=== PATIENT | female | born 1940 | race Caucasian/White ===

== ENCOUNTER → 2016-12-19 | Outpatient (CLI) | payer OTHER | LOC: FLAB 14:42 | PROVIDERS: ATTEND Internal Medicine Cardiovascular Disease | DX: R05 Cough (principal) ==

== ENCOUNTER → 2017-01-07 | Outpatient (CLI) | payer OTHER | LOC: BHFA 09:30 | PROVIDERS: ATTEND Internal Medicine Cardiovascular Disease | DX: I50.9 Heart failure, unspecified (principal); I44.7 Left bundle-branch block, unspecified; R05 Cough; E87.1 Hypo-osmolality and hyponatremia ==

== ENCOUNTER 2017-01-18 07:34 | Inpatient (IN) | payer OTHER ==
--- NOTE | 2017-01-18 07:53 | EDPHY ---
H & P Time Seen by Provider: 01/18/17 07:38 HPI/ROS: CHIEF COMPLAINT: Low back pain, pelvic pain following mechanical fall HISTORY OF PRESENT ILLNESS: The patient presents to the ED with complaints of acute low back pain and gluteal pain following a mechanical fall. The patient' s believes that she may have taken an extra dose of Ambien last night. She was walking this morning slipped and fell on stairs. The patient landed on her back. She did strike her head but did not lose consciousness. The patient denies any acute headache. In the ED today she complains of moderate to severe pain in her lower lumbar spine and gluteal area. The patient denies any associated acute numbness or weakness. The patient denies headache, neck pain, chest pain, difficulty breathing, extremity pain or additional complaints. REVIEW OF SYSTEMS: A comprehensive 10 point review of systems is otherwise negative aside from elements mentioned in the history of present illness. Source: Patient, Family - Medical/Surgical History Hx Asthma: No Hx Chronic Respiratory Disease: No Hx Diabetes: Yes Hx Cardiac Disease: Yes Hx Renal Disease: No Hx Cirrhosis: No Hx Alcoholism: No Hx HIV/AIDS: No Hx Splenectomy or Spleen Trauma: No Other PMH: BREAST CANCER. CHF. HYSTERECTOmy. Mastectomy w reconstruction. HTN. DM - Social History Smoking Status: Never smoked - Physical Exam Exam: General Appearance: Elderly female, no acute distress Head: Atraumatic Eyes: Pupils equal, round, reactive ENT, Mouth: No hemotympanum, no oral trauma Neck: Nontender, trachea midline Respiratory: No chest wall tender, subcutaneous air, lungs clear bilaterally Cardiovascular: Regular rate and rhythm Abdomen: Abdomen is soft and nontender, pelvis stable Skin: Multiple superficial abrasions and skin tears Back: Tenderness to palpation in the lower lumbar spine, midline. Extremities: Nontender, full range of motion Neurological: A&Ox3, normal motor function, normal sensory exam Constitutional: Initial Vital Signs Temperature (C) 36.7 C 01/18/17 07:35 Heart Rate 76 01/18/17 07:35 Respiratory Rate 13 01/18/17 07:35 Blood Pressure 145/76 H 01/18/17 07:35 O2 Sat (%) 98 01/18/17 07:35 O2 Delivery Mode Room Air O2 (L/minute) 2 Allergies/Adverse Reactions: adhesive Allergy (Verified 01/18/17 09:38) Rash codeine Allergy (Verified 01/18/17 09:37) headache metronidazole [From Flagyl] Allergy (Verified 01/18/17 09:37) headache Home Medications: Medication Instructions Recorded Allopurinol [Allopurinol 300 MG 300 mg PO DAILY 12/07/13 (RX)] Aspirin EC [Aspirin EC 81 mg (*)] 81 mg PO DAILY 12/07/13 Atorvastatin Calcium [Lipitor 40 40 mg PO HS 12/07/13 mg (*)] Carvedilol [Coreg (*)] 25 mg PO BID 12/07/13 FOSINOPRIL SODIUM [MONOPRIL] 20 mg PO BID 12/07/13 Levothyroxine [Synthroid 88 mcg 88 mcg PO DAILY06 12/07/13 (*)] Potassium Cl [Klor-Con] 10 meq PO DAILY 12/07/13 metFORMIN HCL [Glucophage 1000 mg] 1,000 mg PO BIDMEAL 12/07/13 Herbals/Supplements -Info Only 1 ea PO DAILY 01/18/17 Multivitamins [Multivitamin (*)] 1 each PO DAILY 01/18/17 Spironolactone [Aldactone 25 MG 25 mg PO DAILY 01/18/17 (*)] Zolpidem Tartrate [Ambien 10 mg] 10 mg PO HS PRN 01/18/17 Medical Decision Making - Diagnostics Imaging Results: Imaging Impressions Lumbar Spine X-Ray 01/18/17 07:38 Impression: 1. Mild to moderate anterior wedge compression fracture superior endplate of L1 more prominent toward the right side that has developed since December,. This could be acute. 2. Stable mild anterior subluxation of L4 on L5 that appears to be secondary to facet hypertrophy. 3. Mild increase in levoscoliosis upper lumbar spine. Pelvis X-Ray 01/18/17 07:39 Impression: 1. No acute osseous abnormality seen about the pelvis. ED Course/Re-evaluation: The patient presents to the ED with low back pain after mechanical fall. The patient has an acute compression fracture at L1. She is neurologically intact. The patient did have an IV established. She received 1 L of normal saline. The patient did have an episode of syncope secondary to an episode of severe pain. EKG demonstrates no evidence of an obvious arrhythmia. She does have underlying left bundle branch block. The patient was evaluated several times by myself in the ED. She continues to have fairly significant pain despite IV narcotics and the application of a Lidoderm patch. The patient will require admission to the hospital for symptomatic management. Consultation is made with the hospitalist service. The patient will be admitted by Dr. Flores this evening. The patient is noted to be hyponatremic. In reviewing her laboratory studies this appears to be chronic. Her sodium is a baseline from a measurement 1 month ago. The patient was noted to have hyperkalemia in the setting of hemolysis. A repeat I-STAT was ordered at 11:50 a.m. Differential Diagnosis: Differential diagnosis considered includes lumbar compression fracture, spinal cord injury, pelvic fracture, arrhythmia, critical anemia - Data Points Laboratory Results: Laboratory Results 01/18/17 08:45 01/18/17 08:45 01/18/17 01/18/17 01/18/17 08:45 08:45 07:35 WBC 12.41 10^3/uL H 10^3/uL (3.80-9.50) RBC 3.15 10^6/uL L 10^6/uL (4.18-5.33) Hgb 10.1 g/dL L g/dL (12.6-16.3) Hct 29.5 % L % (38.0-47.0) MCV 93.7 fL fL (81.5-99.8) MCH 32.1 pg pg (27.9-34.1) MCHC 34.2 g/dL g/dL (32.4-36.7) RDW 12.5 % % (11.5-15.2) Plt Count 175 10^3/uL 10^3/uL (150-400) MPV 9.3 fL fL (8.7-11.7) Neut % (Auto) 82.2 % H % (39.3-74.2) Lymph % (Auto) 10.5 % L % (15.0-45.0) [place] % (Auto) 5.5 % % (4.5-13.0) Eos % (Auto) 0.8 % % (0.6-7.6) Baso % (Auto) 0.4 % % (0.3-1.7) Nucleat RBC Rel Count 0.0 % % (0.0-0.2) Absolute Neuts (auto) 10.20 10^3/uL H 10^3/uL (1.70-6.50) Absolute Lymphs (auto) 1.30 10^3/uL 10^3/uL (1.00-3.00) Absolute Monos (auto) 0.68 10^3/uL 10^3/uL (0.30-0.80) Absolute Eos (auto) 0.10 10^3/uL 10^3/uL (0.03-0.40) Absolute Basos (auto) 0.05 10^3/uL 10^3/uL (0.02-0.10) Absolute Nucleated RBC 0.00 10^3/uL 10^3/uL (0-0.01) Immature Gran % 0.6 % % (0.0-1.1) Immature Gran # 0.08 10^3/uL 10^3/uL (0.00-0.10) Sodium 124 mEq/L L mEq/L (134-144) Potassium 6.2 mEq/L H mEq/L (3.5-5.2) Chloride 96 mEq/L L mEq/L (97-110) Carbon Dioxide 20 mEq/l L mEq/l (22-31) Anion Gap 8 mEq/L mEq/L (8-16) BUN 19 mg/dL mg/dL (7-23) Creatinine 0.7 mg/dL mg/dL (0.6-1.0) Estimated GFR > 60 Glucose 125 mg/dL H mg/dL (70-100) Calcium 8.4 mg/dL L mg/dL (8.5-10.4) Specimen Hemolysis 160 Urine RBC 1-3 /hpf /hpf (0-3) Urine WBC 1-3 /hpf /hpf (0-3) Ur Epithelial Cells TRACE /lpf /lpf (NONE-1+) Hyaline Casts 1-5 /lpf /lpf (0-1) Medications Given: Discontinued Medications Sodium Chloride (Ns) 1,000 mls @ 0 mls/hr IV EDNOW ONE; Wide Open PRN Reason: Protocol Stop: 01/18/17 08:16 Last Admin: 01/18/17 08:20 Dose: 1,000 mls Lidocaine (Lidoderm 5%) 1 ea TD EDNOW ONE Stop: 01/18/17 08:13 Last Admin: 01/18/17 08:20 Dose: 1 ea Morphine Sulfate (Morphine) 2 mg IVP EDNOW ONE Stop: 01/18/17 10:56 Last Admin: 01/18/17 11:09 Dose: 2 mg Ondansetron HCl (Zofran) 4 mg IVP EDNOW ONE Stop: 01/18/17 08:50 Last Admin: 01/18/17 08:56 Dose: Not Given Departure - Departure Disposition: [facility] Inpatient Acute Clinical Impression: Lumbar compression fracture, Vasovagal syncope, Chronic hyponatremia Condition: Fair
[2017-01-18] MEDS ORDERED: ONDANSETRON 4 MG/2 ML VIAL ONE (08:07)
[2017-01-18] MEDS ORDERED: LIDOCAINE 5% 1 EA PATCH TD ONE (08:12)
[2017-01-18] MEDS ORDERED: NS 1,000 ML IV ONE (08:15)
[2017-01-18] MEDS ORDERED: ONDANSETRON 4 MG/2 ML VIAL IVP ONE (08:49)
[2017-01-18] MEDS: PATCH REMOVAL 1 EA PATCH TD SCH (08:57)
[2017-01-18 09:06] LABS: % IMMATURE GRANULYOCYTES 0.6 % (0.0-1.1); ABSOLUTE IMMATURE GRANULOCYTES 0.08 10^3/uL (0.00-0.10); ADD DIFF? NO; ADD MORPH? NO; ADD SCAN? NO; ATYPICAL LYMPHOCYTE FLAG 10 (0-99); FRAGMENT RBC FLAG 0 (0-99); HEMATOCRIT 29.5 % (38.0-47.0); HEMOGLOBIN 10.1 g/dL (12.6-16.3); LEFT SHIFT FLG 0 (0-99); LIPEMIA HEMOLYSIS FLAG 90 (0-99); MEAN CELL HEMOGLOBIN 32.1 pg (27.9-34.1); MEAN CELL HEMOGLOBIN CONCENTR. 34.2 g/dL (32.4-36.7); MEAN CELL VOLUME 93.7 fL (81.5-99.8); MEAN PLATELET VOLUME 9.3 fL (8.7-11.7); PLATELET CLUMPS FLAG 10 (0-99); PLATELET COUNT 175 10^3/uL (150-400); RED BLOOD CELL COUNT 3.15 10^6/uL (4.18-5.33); RED CELL DISTRIBUTION WIDTH 12.5 % (11.5-15.2)
[2017-01-18 09:29] LABS: ANION GAP 8 mEq/L (8-16); CALCIUM 8.4 mg/dL (8.5-10.4); CARBON DIOXIDE 20 mEq/l (22-31); CHLORIDE 96 mEq/L (97-110); CREATININE 0.7 mg/dL (0.6-1.0); GLOMERULAR FILTRATION RATE > 60; GLUCOSE 125 mg/dL (70-100); POTASSIUM 6.2 mEq/L (3.5-5.2); SODIUM 124 mEq/L (134-144); SPECIMEN HEMOLYSIS 160
--- NOTE | 2017-01-18 12:55 | CPEKG ---
Heart Rate: 67 RR Interval: 896 P-R Interval: 260 QRSD Interval: 150 QT Interval: 424 QTC Interval: 448 P [place]: 72 QRS [place]: -55 T Wave [place]: 104 EKG Severity - ABNORMAL ECG - EKG Impression: SINUS RHYTHM EKG Impression: VENTRICULAR PREMATURE COMPLEX EKG Impression: FIRST DEGREE AV BLOCK EKG Impression: PROBABLE LEFT ATRIAL ABNORMALITY EKG Impression: LEFT BUNDLE BRANCH BLOCK Electronically Signed By: Sinan Aviles 24-Jan-2017 12:52:42
[2017-01-18] MEDS: traMADol 50 MG TAB PO PRN ×2 (15:37→22:10)
--- NOTE | 2017-01-18 16:00 | GHP ---
[f rep st] HISTORY AND PHYSICAL DATE OF ADMISSION: 01/18/2017 CHIEF COMPLAINT: Low back pain. HISTORY OF PRESENT ILLNESS: This is a 76-year-old female with history of AFib, syncope, anorexia, a nd insomnia, on Ambien at night, who woke this morning at 6:30 on the floor in excruciating low back pain. The pain was described as 10/10 in her low back, right side greater than left. She could no t move. She was unable to recall how she landed on the floor. She did take an Ambien last night. She denied any significant alcohol intake last night. She did have episode of syncope 3 years ago, at which time, she was worked up by Cardiology without a source. She has passed out multiple times in the past, which is attributed to nausea and vomiting which is most likely due to her vagal tone. At the time of my exam, she continues to have severe low back pain. She denies any bowel or bladder incontinence. She denies any chest pain or shortness of breath. She has not been eating very much , since she has been stressed. Once again, she has a history of anorexia. Her has not been in good health. She has lost over 40 pounds over the past few months. PAST MEDICAL HISTORY: 1. Syncope. 2. Hypertension. 3. Anorexia. 4. Gout. 5. Heart failure. 6. Hypothyroidism. 7. Diabetes mellitus. PAST SURGICAL HISTORY: 1. Hysterectomy. 2. Mastectomy and reconstruction. HOME MEDICATIONS: Reviewed. Refer to [facility] for details. ALLERGIES: Codeine and metronidazole. SOCIAL HISTORY: She drinks a glass of wine every now and then but does not drink to get drunk. She denies any tobacco or illicit drug use. FAMILY HISTORY: Reviewed and noncontributory other than family history of heart failure. REVIEW OF SYSTEMS: Comprehensive 10-point review of systems was done and is negative except for as mentioned in the HPI. PHYSICAL EXAM: VITAL SIGNS: Blood pressure 123/57, pulse 68, respiratory rate 16, O2 sat 98% on 2 L, temperature afebrile. GENERAL: No acute distress. HEAD: Normocephalic, atraumatic. EYES: PE RRLA. Sclerae anicteric. MOUTH: Moist mucous membranes. NECK: Supple. No lymphadenopathy. CAR DIOVASCULAR: S1, S2. No JVD. No lower extremity edema. PULMONARY: Lungs are clear. No wheezes, rales, or rhonchi. ABDOMEN: Soft, nontender, nondistended. No guarding or rebound tenderness. N ormoactive bowel sounds. EXTREMITIES: No clubbing or cyanosis. NEURO: Cranial nerves 2-12 grossl y intact. No focal, motor or sensory deficits. There is no saddle anesthesia. Muscle strength: 5 /5 bilateral lower extremity flexion, extension at the hip and at the foot. DTRs are symmetric. SK IN: Clear. No rashes. DIAGNOSTICS: WBC is 12.4, hemoglobin 10.1, hematocrit 29.5, platelets 175. Sodium 126, potassium 4 .7, chloride 96, CO2 of 20, BUN 19, creatinine 0.7, glucose 125, calcium 8.4. UA unremarkable. Lum bar spine x-ray, which I visualized and personally interpreted, showed an L1 compression fracture. EKG, which I visualized and personally interpreted, showed sinus rhythm, rate 67 beats per minute wi th first-degree AV block and probable left atrial abnormality, and left bundle branch block. I reviewed prior EKGs in [facility], the last of which was in December of 2015, where she had a left bundl e branch block at that time as well. ASSESSMENT: This is a 76-year-old female who awoke while on the floor today with severe back pain, found to have: 1. Acute L1 compression fracture, possibly pathologic, in the setting of osteopenia or osteoporosis . 2. Possible syncopal episode versus parasomnia from Ambien versus cardiogenic syncope. 3. History of anorexia. 4. Hyponatremia appears to be euvolemic, which I suspect is from poor solute intake, given the fact that she is not eating much. 5. Normocytic anemia. PLAN: 1. Admit to [facility] with cardiac monitoring. 2. Cardiology consult, given her history of heart failure and syncope. 3. Discussed the case with Dr. Rylan Luo from Neurosurgery, who will have someone from his team see the patient to evaluate for kyphoplasty. 4. Obtain urine sodium and monitor chemistries. Patient is high risk for VTE and will be placed on Lovenox for DVT prophylaxis. /[id number]/MODL
[2017-01-18 17:02] LABS: INR 1.19 (0.83-1.16); PROTIME(PATIENT) 15.1 SEC (12.0-15.0)
[2017-01-18 17:03] LABS: APTT 31.4 SEC (23.0-38.0)
[2017-01-18 17:13] LABS: TROPONIN I 0.015 ng/mL (0-0.034)
[2017-01-18] MEDS: metFORMIN HCL 500 MG TAB PO SCH (18:28)
[2017-01-18] MEDS: ATORVASTATIN CALCIUM 40 MG TAB PO SCH (20:33)
[2017-01-18] MEDS: LISINOPRIL 20 MG TAB PO SCH (20:33)
[2017-01-18] MEDS: CARVEDILOL 25 MG TAB PO SCH (20:34)
--- NOTE | 2017-01-18 22:46 | GCON ---
[f rep st] CONSULTATION INPATIENT CONSULTATION DATE OF CONSULTATION: 01/18/2017 CHIEF COMPLAINT: Back pain, L1 endplate fracture. HISTORY OF PRESENT ILLNESS: Patient is a 76-year-old female, who presented to the emergency room today after she woke up on the floor this morning status post fall. Patient states that she woke up with excruciating low back pain, which was described as 10/10 with it being worse on the right side. She does take Ambien at 10 o'clock every night and has done so for approximately 1 year. She states she has had syncopal episodes in the past and is seen by Cardiology. Patient states that she has lost approximately 40 pounds in the last few months contributes some of the weight to an exercise program she is on and the other is unexplained, where she said she just had a loss of appetite. REVIEW OF SYSTEMS: A 10-point review of systems performed and negative other than what was mentioned in the HPI. PAST MEDICAL HISTORY: Significant for syncope, hypertension, anorexia, gout, heart failure, hypothyroid, and diabetes. PAST SURGICAL HISTORY: Includes a hysterectomy, mastectomy, and oophorectomies. FAMILY HISTORY: Mother from heart failure. Sister from ovarian cancer. SOCIAL HISTORY: Patient drinks occasional wine with dinner. She denies any smoking. Denies any drugs. ALLERGIES: Include codeine and Flagyl. MEDICATIONS: Ambien, Glucophage, Lipitor, Coreg, Zestril, lidocaine patch, Synthroid, allopurinol, aspirin enteric-coated, multivitamins, Aldactone. PHYSICAL EXAMINATION: VITAL SIGNS: Blood pressure is 123/57, heart rate is 68 , respiratory rate is 16, oxygenation is 98% on 2 L nasal cannula, temperature is 36.6 Celsius. HEENT: Head is normocephalic and atraumatic. Pupils are equal, round, and reactive to light. EOMI is intact. Full visual fernandez by confrontation. RESPIRATORY: Normal work of breathing. CARDIAC: Deferred. ABDOMEN: Soft, nontender. GENITOURINARY: Deferred. RECTAL: Deferred. NEUROLOGIC: Patient is awake, alert and oriented to name, place, location, date , time, and situation. Memory is intact to immediate past and current events. Speech: No aphasia or dysphonia. Cranial nerves 2-12 are grossly intact. Motor: The patient has 5/5 strength in all muscle groups in the bilateral lower and upper extremities to include the deltoids, biceps, triceps, brachioradialis, wrist flexion and extensors, home care manager, intrinsic fingers, iliopsoas , quadriceps, hamstrings, plantarflexion, dorsiflexion, EHL testing. Sensation is grossly intact to light touch throughout all dermatomal distributions in the bilateral lower extremities. Patient has a negative straight leg raise bilaterally. Unable to perform LYNDON test due to pain in the right lower back. Reflexes: Biceps, triceps, brachioradialis, knee jerk, and ankle jerk are 2+ out of 4. Toes are downgoing bilaterally. Amie sign is negative. Babinski is negative. No evidence of clonus. Patient is very tender to palpation lumbar spine. ASSESSMENT/PLAN: Patient is a 76-year-old female status post fall has suffered an acute L1 endplate fracture. She is neurologically intact and due to the patient's comorbidities, we recommend bracing as treatment of her fracture. This would be a Sophy brace. Risks, and benefits of vertebral augmentation were discussed with Dr Mccarty. Patient is considering her treatment options at this time and will let us know how she would like to proceed. If vertebral augmentation is chosen, we will defer to IR. Patient was seen by Dr Mccarty at the bedside as well. This patient was seen as an inpatient consult on January 18, 2017, at 1600. /[id number]/MODL MTDD
--- NOTE | 2017-01-18 23:01 | GCON ---
[f rep st] CONSULTATION CARDIOLOGY CONSULTATION PRIMARY CARE DOCTOR: Dr. Drew PRIMARY MULTIPLE WIRE SAWYER: Dr. Terence Paez CHIEF COMPLAINT: Possible syncope. HISTORY OF PRESENT ILLNESS: We were asked by Dr. Flores to visit with Torri. 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 Guevara mckeon has had extensive evaluation at the [facility]. She was last seen there in May 2016. Eject ion fraction was 45% at that time. She does have a left bundle branch block and has previously had Holter monitoring with a PVC burden of 3%. She sees Dr. Paez and has been clinically stable from a heart failure standpoint. She was seen in our office most recently on January 07. At that time, she had been complaining of a chr onic dry cough and her KASIA inhibitor was changed to losartan. Her digoxin was stopped and her Aldac tone was decreased. The patient is admitted through the ER today after sustaining a fall down the stairs at home complic ated by lumbar compression fracture. She reports that last night she went out to dinner with her fa uyen. She had 1 glass of wine which is her usual custom. She ate a normal meal. She came home and took her usual Ambien dose around 10:00 p.m. She woke up, probably around 6:30 in the morning, and she thinks she was on the floor outside of her bedroom. She realized that she needed help, so she got up and started ringing a renteria that she has in her bedroom. The next thing she knew, she was fal ling down the stairs and was found by her at the bottom of the stairs. She is brought to [facility] ER for further evaluation. She denies any prodrome of chest pain, dyspnea, or palpitations. She currently is free of cardiovas cular symptoms and complains only of back pain. She also states that about 3 months ago, but it may have been longer ago than that according to our chart, she had an episode where she was working at her computer and then found herself on the floor looking up at her desk. The etiology of this is no t clear, but she was told that she may have been overheated as it is quite hot in the room she was w orking in. REVIEW OF SYSTEMS: A full 10-point review of systems was performed which was negative except that fide neville is outlined in the History of Present Illness. She has lost some weight recently due to anorex ia and stress of caring for her who has been ill. PAST MEDICAL HISTORY: 1. 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 2. Hypothyroidism. 3. Diabetes. 4. Hypertension. 5. Gout. 6. Chronic hyponatremia. 7. Left bundle branch block. 8. Nocturnal hypoxia. 9. Breast cancer. OUTPATIENT MEDICATIONS: Allopurinol 300 mg daily, Coreg 25 mg twice daily, Synthroid 88 mcg daily, losartan 50 mg daily, metformin 1,000 mg twice daily, Robaxin 500 mg 1/2 to 1 tablet at bedtime p.r. n., spironolactone 12.5 mg daily, zolpidem 10 mg nightly, aspirin 81 mg daily, calcium with vitamin D, and Lipitor 40 mg daily. SOCIAL HISTORY: The patient is . She does drink alcohol in moderation. She does not smoke cigarettes. FAMILY HISTORY: Notable for cardiomyopathy and related to this. Her daughter has a history o f heart failure as well. PHYSICAL EXAMINATION: VITAL SIGNS: Blood pressure 123/57, heart rate 68, oxygen saturation 97% on 2 L. She is afebrile. GENERAL: Well-appearing, but somewhat frail older female in no acute distre ss. HEENT: Sclerae clear and free of jaundice. Mucous membranes are moist. Normocephalic, atraum atic. Dentition is normal. CARDIOVASCULAR: JVP is less than 10. Carotids equal and 2+ bilaterall y, without bruit. Regular rate and rhythm with an early peaking systolic ejection murmur at the bas e and II/ holosystolic murmur at the left sternal border. No rub or gallop. LUNGS: Clear throug hout without wheezes, rhonchi, or rales. ABDOMEN: Soft, nontender, nondistended without bruits, ma sses, or hepatosplenomegaly. EXTREMITIES: Warm and well-perfused without cyanosis, clubbing, or ed afsaneh. NEURO: Alert and oriented x3 without gross focal neurological deficits. Appropriate mood and affect. LABORATORY DATA: White count 12.4, hematocrit 29.5, which is lower than recent baseline, left shift . Sodium 124 which is slightly though lower than baseline. Potassium 6.2, but on recheck 4.7, chlo ride 96, bicarb 20, BUN 19, creatinine 0.7, glucose 125. Urinalysis: 1-3 red cells, 1-3 white cell s. EKG reviewed by me. Normal sinus rhythm. Left bundle branch block. PVC. Lumbar spine x-ray: Anterior wedge compression fracture of L1. Pelvis x-ray: No acute osseous abn ormality. ASSESSMENT AND PLAN: A 76-year-old female with nonischemic cardiomyopathy, left bundle branch block , diabetes. She is admitted status post fall down the stairs complicated by lumbar compression frac ture. The etiology of her fall is not completely clear. It is possible that in the setting of weig ht loss and still taking her normal dose of Ambien, it was too much Ambien and she was very confused . She denies any cardiovascular symptoms over the past few days. However, given her history of car diomyopathy and left bundle branch block, it is possible that she had an arrhythmic event, either ta chycardia or bradycardia. 1. Fall, possible syncope: Agree with telemetry monitoring. Check orthostatics. Check echocardio gram. I have ordered a troponin. Would consider ambulatory monitoring with a LINQ recorder, ulises albright given her somewhat unexplained episode of being found on the floor 3 months ago. 2. History of cardiomyopathy: Her ejection fraction last May at the [facility] was 45% by re port. Repeat echocardiogram now. Continue cardiomyopathy medications. She does not appear to be v olume depleted, and perhaps should come off her spironolactone if we think this may be contributing to some dehydration. 3. Chronic hyponatremia: Currently slightly worse than baseline per Internal Medicine. 4. Left bundle branch block: Continue telemetry. Can consider LINQ recording. 5. Diabetes: Followed by Dr. Drew. Thank you for allowing us to participate in Torri's care. I will follow with you. /[id number]/MODL
[2017-01-19 05:19] LABS: % IMMATURE GRANULYOCYTES 0.4 % (0.0-1.1); ABSOLUTE IMMATURE GRANULOCYTES 0.03 10^3/uL (0.00-0.10); ADD DIFF? NO; ADD MORPH? NO; ADD SCAN? NO; ATYPICAL LYMPHOCYTE FLAG 10 (0-99); FRAGMENT RBC FLAG 0 (0-99); HEMATOCRIT 26.6 % (38.0-47.0); HEMOGLOBIN 8.9 g/dL (12.6-16.3); LEFT SHIFT FLG 0 (0-99); LIPEMIA HEMOLYSIS FLAG 80 (0-99); MEAN CELL HEMOGLOBIN 31.9 pg (27.9-34.1); MEAN CELL HEMOGLOBIN CONCENTR. 33.5 g/dL (32.4-36.7); MEAN CELL VOLUME 95.3 fL (81.5-99.8); MEAN PLATELET VOLUME 8.9 fL (8.7-11.7); PLATELET CLUMPS FLAG 10 (0-99); PLATELET COUNT 178 10^3/uL (150-400); RED BLOOD CELL COUNT 2.79 10^6/uL (4.18-5.33); RED CELL DISTRIBUTION WIDTH 12.5 % (11.5-15.2)
[2017-01-19 05:29] LABS: ALANINE AMINOTRANSFERASE 30 IU/L (9-52); ALBUMIN 2.8 g/dL (3.5-5.0); ALKALINE PHOSPHATASE 36 IU/L (38-126); ANION GAP 7 mEq/L (8-16); ASPARTATE AMINOTRANSFERASE 24 IU/L (14-46); BILIRUBIN,TOTAL 0.7 mg/dL (0.1-1.4); CALCIUM 8.6 mg/dL (8.5-10.4); CARBON DIOXIDE 23 mEq/l (22-31); CHLORIDE 95 mEq/L (97-110); CREATININE 0.8 mg/dL (0.6-1.0); GLOMERULAR FILTRATION RATE > 60; GLUCOSE 84 mg/dL (70-100); POTASSIUM 4.8 mEq/L (3.5-5.2); SODIUM 125 mEq/L (134-144); TOTAL PROTEIN 4.8 g/dL (6.3-8.2)
[2017-01-19 05:38] LABS: % SATURATION 12 % (20-55); TOTAL IRON BINDING CAPACITY 282 ug/dL (260-490)
[2017-01-19 06:03] LABS: FERRITIN - BCH 40.1 ng/mL (6.2-264.0)
[2017-01-19] MEDS: LEVOTHYROXINE 88 MCG TAB PO SCH (06:23)
[2017-01-19] MEDS: traMADol 50 MG TAB PO PRN ×2 (06:23→16:42)
[2017-01-19] MEDS: ONDANSETRON 4 MG/2 ML VIAL IVP PRN ×2 (06:26→22:03)
[2017-01-19] MEDS: ALLOPURINOL 300 MG TAB PO SCH (08:15)
[2017-01-19] MEDS: ASPIRIN EC 81 MG TAB PO SCH (08:15)
[2017-01-19] MEDS: LISINOPRIL 20 MG TAB PO SCH ×2 (08:16→20:01)
[2017-01-19] MEDS: MULTIVITAMINS 1 EACH TAB PO SCH (08:17)
[2017-01-19] MEDS: CARVEDILOL 25 MG TAB PO SCH ×2 (08:17→20:01)
[2017-01-19] MEDS: ENOXAPARIN 40 MG/0.4 ML SYR SC SCH (08:18)
[2017-01-19] MEDS: metFORMIN HCL 500 MG TAB PO SCH ×2 (08:18→17:59)
[2017-01-19] MEDS ORDERED: POTASSIUM CL 10 MEQ TAB PO SCH (09:00)
[2017-01-19] MEDS ORDERED: SPIRONOLACTONE 25 MG TAB PO SCH (09:00)
[2017-01-19] MEDS ORDERED: Herbals/Supplements -Info Only PO SCH (09:00)
--- NOTE | 2017-01-19 09:48 | SOAPPROG ---
SOAP Progress Note Assessment/Plan: Assessment/Plan: This is a 76 yr old with history of nonischemic CMP with last EF of 45% who had a fall of unknown etiology. In a patient with LBBB and nonischemic CMP, tachy and bradyarrhythmias are a consideration and hence LINQ implant as outpt will be needed. EP study to eval for conduction system and inducibility of VT may also be considered. However, currently pt does not want any of this. Other possible etiologies include hematologic issues, dehydration. Pt appears euvolemic and hence will stop Aldactone for now. Pt is keen on returning to Dr Paez and then make further plans since she believes that stress is causing all of this 01/19/17 09:45 Subjective: Pt is distraught and is resistant to suggestions of further testing/implant. She appears to be in no distress. Objective: Vital Signs Temp Pulse Resp BP Pulse Ox 37.0 C 60 16 107/52 L 90 L 01/19/17 07:21 01/19/17 08:17 01/19/17 07:21 01/19/17 08:17 01/19/17 07:21 Laboratory Results 01/19/17 04:39 01/19/17 04:39 01/18/17 01/19/17 01/20/17 05:59 05:59 05:59 Intake Total 1350 Output Total 100 Balance 1250 PT 15.1 SEC (12.0-15.0) H 01/18/17 16:29 INR 1.19 (0.83-1.16) H 01/18/17 16:29 Physical Exam - Physical Exam General Appearance: alert EENT: PERRL/EOMI, normal ENT inspection Neck: non-tender, supple, normal inspection Respiratory: chest non-tender, lungs clear, No crackles, No rales Cardiac/Chest: regular rate, rhythm, No edema, No gallop, No JVD Abdomen: normal bowel sounds, non-tender, soft Skin: normal color, warm/dry ICD10 Worksheet Patient Problems: Problems Problem Status Onset Chronic hyponatremia Acute Lumbar compression fracture Acute Vasovagal syncope Acute
--- NOTE | 2017-01-19 12:47 | NEUSURGPN ---
Assessment/Plan: a/p 76F with repeated episodes of syncopal falls and findings of L1 endplate fracture with intractable pain -Pt wishes to try conservative therapy (pain medications and bracing) over kyphoplasty -patient pain improved today -recommend mobilize and see how pt does in brace in regards to pain with PT/OT before cleared for DC. -if not doing well would revisit kypho conversation. -no MRI unless kypho being considered. -She will need to f/u with Dr. Mccarty in 4-6 weeks with new films Subjective: pain much better controlled today but not ambulating at this point. no complaint of weakness, saddle anesthesia, radicular pain Objective: NAD VSS [id number] EOMI, PEARLA MAEx4 BLE 5/5= +LT - Physician Discussed Patient with : [facility] Physical Exam - Vitals, I&O, Labs I and O 01/18/17 01/19/17 01/20/17 05:59 05:59 05:59 Intake Total 1350 Output Total 100 Balance 1250 Weight 42.638 kg Intake: Oral (ml) 350 IV Infused (ml) 1000 Output: Urine (ml) 100 Bedpan 100 Other: Intake Quantity Yes Sufficient Number of Voids 1 Bedpan 3 Vital Signs Temp Pulse Resp BP Pulse Ox 37.0 C 60 16 107/52 L 90 L 01/19/17 07:21 01/19/17 08:17 01/19/17 07:21 01/19/17 08:17 01/19/17 07:21 Laboratory Results 01/19/17 04:39 01/19/17 04:39 ICD10 Worksheet Patient Problems: Problems Problem Status Onset Chronic hyponatremia Acute Lumbar compression fracture Acute Vasovagal syncope Acute
--- NOTE | 2017-01-19 13:21 | HOSPPROG ---
Hospitalist Progress Note Assessment/Plan: #L1 Compression fx not able to tolerate brace -still immobile -IR consult for kyphoplasty #Syncope -cards consult reviewed and appreciated #acute on chronic hyponatremia -fluid restrict and monitor #normocytic anemia #vagal episode while putting on brace dispo: continue inpatient care Subjective: severe uncontrolled low back pain. hasnt gottent out of bed. no new numbness or weakness. episode of flushing in nausea associated with pain while attempting to fit brace Objective: Vital Signs Temp Pulse Resp BP Pulse Ox 37.2 C 60 17 105/53 L 97 01/19/17 12:45 01/19/17 12:45 01/19/17 12:45 01/19/17 12:45 01/19/17 12:45 Laboratory Results 01/19/17 04:39 01/19/17 04:39 01/18/17 01/19/17 01/20/17 05:59 05:59 05:59 Intake Total 1350 Output Total 100 Balance 1250 PT 15.1 SEC (12.0-15.0) H 01/18/17 16:29 INR 1.19 (0.83-1.16) H 01/18/17 16:29 - Physical Exam Constitutional: no apparent distress, uncomfortable, cachectic Cardiovascular: regular rate and rhythym, no murmur, rub, or gallop, No JVD, No edema Respiratory: no respiratory distress, no rales or rhonchi, clear to auscultation , No rhonchi Gastrointestinal: normoactive bowel sounds, soft, non-tender abdomen, no palpable masses, No guarding, No rebound Neurologic: AAOx3, other (no saddle anesthesia) ICD10 Worksheet Patient Problems: Problems Problem Status Onset Lumbar compression fracture Acute Vasovagal syncope Acute Chronic hyponatremia Acute
[2017-01-19] MEDS: METHOCARBAMOL 500 MG TAB PO SCH ×2 (16:07→20:01)
[2017-01-19] MEDS: ATORVASTATIN CALCIUM 40 MG TAB PO SCH (20:01)
[2017-01-19] MEDS: NS 1,000 ML IV SCH ×2 (22:00→22:04)
[2017-01-19] MEDS: PATCH REMOVAL 1 EA PATCH TD SCH (22:10)
[2017-01-20] MEDS: METHOCARBAMOL 500 MG TAB PO SCH ×4 (05:31→20:32)
[2017-01-20] MEDS: LEVOTHYROXINE 88 MCG TAB PO SCH (05:31)
[2017-01-20] MEDS: traMADol 50 MG TAB PO PRN ×3 (05:31→18:33)
--- NOTE | 2017-01-20 09:00 | NEUSURGPN ---
Assessment/Plan: a/p 76F with repeated episodes of syncopal falls and findings of L1 endplate fracture with intractable pain. Pt did not tolerate demetrio brace, wishes to proceed with kyphoplasty, pain continues at 6/10 or higher. -Spoke to IR, plan is for kyphoplasty tomorrow -Will need MRI under general sedation, appears may be delayed until tomorrow before procedure -PT/OT and mobilization OK. dw/ Dr. Mccarty. Subjective: still complaining of back pain, not getting up very often. Objective: VSS, NAD EOMI, PEARLA MAEx4 BLE 5/5= +LT - Physician Discussed Patient with : [facility] Physical Exam - Vitals, I&O, Labs I and O 01/19/17 01/20/17 01/21/17 05:59 05:59 05:59 Intake Total 1350 800 Output Total 100 500 Balance 1250 300 Weight 42.638 kg Intake: Oral (ml) 350 IV Infused (ml) 1000 800 Ns 1,000 ml @ 100 mls/hr 800 IV CONT MERRITT Rx#: [id number] Output: Urine (ml) 100 500 Bedpan 100 500 Other: Intake Quantity Yes Yes Sufficient Number of Voids 1 Bedpan 3 1 Vital Signs Temp Pulse Resp BP Pulse Ox 37.2 C 61 14 120/57 L 95 01/20/17 08:03 01/20/17 08:03 01/20/17 08:03 01/20/17 08:03 01/20/17 08:03 Laboratory Results 01/19/17 04:39 01/19/17 04:39 ICD10 Worksheet Patient Problems: Problems Problem Status Onset Chronic hyponatremia Acute Lumbar compression fracture Acute Vasovagal syncope Acute
[2017-01-20] MEDS: metFORMIN HCL 500 MG TAB PO SCH ×2 (09:15→17:34)
[2017-01-20] MEDS: ACETAMINOPHEN 325 MG TAB PO PRN (09:15)
[2017-01-20] MEDS: CARVEDILOL 25 MG TAB PO SCH ×2 (09:16→20:32)
[2017-01-20] MEDS: ALLOPURINOL 300 MG TAB PO SCH (09:16)
[2017-01-20] MEDS: MULTIVITAMINS 1 EACH TAB PO SCH (09:17)
[2017-01-20] MEDS: LISINOPRIL 20 MG TAB PO SCH ×2 (09:19→20:34)
[2017-01-20] MEDS: ASPIRIN EC 81 MG TAB PO SCH (12:13)
--- NOTE | 2017-01-20 12:17 | HOSPPROG ---
Hospitalist Progress Note Assessment/Plan: #L1 Compression fx not able to tolerate brace -still immobile -MRI and kypho 01/21 #Syncope -cards consult reviewed and appreciated #acute on chronic hyponatremia -fluid restrict and monitor #normocytic anemia #vagal episode while putting on brace dispo: continue inpatient care Subjective: improved back pain. still not getting up. reports loss of smell and taste that is getting better Objective: Vital Signs Temp Pulse Resp BP Pulse Ox 36.5 C 71 17 113/58 L 95 01/20/17 11:21 01/20/17 11:21 01/20/17 11:21 01/20/17 11:21 01/20/17 11:21 Laboratory Results 01/19/17 04:39 01/19/17 04:39 01/19/17 01/20/17 01/21/17 05:59 05:59 05:59 Intake Total 1350 800 Output Total 100 500 Balance 1250 300 PT 15.1 SEC (12.0-15.0) H 01/18/17 16:29 INR 1.19 (0.83-1.16) H 01/18/17 16:29 - Physical Exam Constitutional: no apparent distress, appears nourished, not in pain Cardiovascular: regular rate and rhythym, no murmur, rub, or gallop Respiratory: no respiratory distress, no rales or rhonchi, clear to auscultation Gastrointestinal: normoactive bowel sounds, soft, non-tender abdomen, no palpable masses Neurologic: AAOx3, sensation intact bilaterally, CN II-XII Intact, No facial droop ICD10 Worksheet Patient Problems: Problems Problem Status Onset Lumbar compression fracture Acute Vasovagal syncope Acute Chronic hyponatremia Acute
[2017-01-20] MEDS: ENOXAPARIN 40 MG/0.4 ML SYR SC SCH (13:41)
[2017-01-20] MEDS ORDERED: LACTULOSE 20 GM/30 ML UDCUP PO PRN (16:37)
[2017-01-20] MEDS ORDERED: POLYETHYLENE GLYCOL 3350 17 GM PKT PO PRN (16:37)
[2017-01-20] MEDS ORDERED: BISACODYL 10 MG SUPP PR PRN (16:37)
[2017-01-20] MEDS ORDERED: MAGNESIUM HYDROXIDE 30 ML UDCUP PO PRN (16:37)
[2017-01-20] MEDS: SENNOSIDES/DOCUSATE SODIUM TAB PO SCH ×2 (17:34→20:32)
--- NOTE | 2017-01-20 19:27 | GCON ---
[f rep st] CONSULTATION RADIOLOGY CONSULTATION DATE OF CONSULTATION: 01/20/2017 REFERRING PHYSICIAN: Ramiro Travis PA-C REASON FOR CONSULTATION: Recent fall and interval development of an L1 compression fracture. HISTORY OF PRESENT ILLNESS: The patient is a 76-year-old female with a history of heart failure, diabetes, syncopal episodes, breast cancer status post mastectomy, hypertension, anorexia, hypothyroid, and gout, who fell down the stairs on the morning of 01/18/2017 and began to experience right greater than left-sided 10/10 low back pain. She was brought to the emergency room, where a lumbar spine radiograph demonstrated a superior endplate deformity at L1 which was new since comparison film dated 10/14/2015. She currently endorses moderate low back pain, worse on the right, which has migrated towards her hip over the past couple of days. She has a long history of syncopal episodes associated with nausea, however, she declines ever passing out when she is not nauseated. She endorses 1 episode of abdominal pain approximately a year ago which required a brief admission to the ER for what she describes as gallstone pancreatitis. This episode was short-lived and resolved while she was still in the ED. She endorses decreased appetite resulting in weight loss over the last several months, however, she says her appetite today is improved. She declines fever, chills, nausea, vomiting, chest pain or shortness of breath, abdominal pain, swelling in her arms or legs. PAST MEDICAL HISTORY: See HPI. PAST SURGICAL HISTORY: Right mastectomy and reconstruction. Left lumpectomy for benign tumor. Hysterectomy. MEDICATIONS: Reviewed. See [address] for details. ALLERGIES: Adhesive, codeine, and metronidazole. FAMILY HISTORY: Heart failure in her mother, otherwise noncontributory. SOCIAL HISTORY: Social drinker. Denies tobacco use. REVIEW OF SYSTEMS: Ten-point review of systems negative except as noted in the HPI. PHYSICAL EXAMINATION: VITAL SIGNS: Blood pressure 113/58, heart rate 71, respiratory rate 17, oxygen saturation 95 on 2 L of oxygen, temperature 36.5. GENERAL: Thin appearing, no acute distress. HEENT: Normocephalic. Sclerae are anicteric. Oropharynx is clear. NECK: Supple, without lymphadenopathy. HEART: Regular rate and rhythm. LUNGS: Breathing unlabored. ABDOMEN: Nontender, nondistended, and soft. MUSCULOSKELETAL: Endorses moderate right lower lumbar tenderness along the right paraspinal musculature and flank. No point tenderness along the spine. No clubbing, cyanosis or edema. PULSES: 2+ DP bilaterally. NEURO: Grossly nonfocal. LABORATORY DATA: White blood cell count 7.62, hemoglobin 8.9, hematocrit 26.6, platelets 178. PT 15.1, INR 1.19, aPTT 31.4. IMAGING: Lumbar and pelvic radiographs dated 12/19/2016 were reviewed. There is a superior endplate deformity at L1 which is new since comparison lumbar spine radiograph dated 10/14/201516. Grade 1 anterolisthesis at L4-L5 is not significantly changed. There is multilevel degenerative disk disease, most severe at L5-S1. ASSESSMENT/PLAN: The patient is a 76-year-old female with the above past medical history who was admitted after a fall with a suspected acute L1 compression fracture. She was initially offered a back brace which she says was intolerable. Interventional Radiology was consulted for kyphoplasty. I discussed the procedure, potential benefits and the risks, including but not limited to pain, bleeding, infection, failure to relieve pain and damage to adjacent structures resulting in paralysis with the patient and her at length. We also discussed alternative treatment options. I answered their questions and she has decided to proceed with kyphoplasty. She will need an MRI of the lumbar spine prior to kyphoplasty given that her physical exam is not completely consistent with an acute fracture. Plan for MRI of the lumbar spine tomorrow morning with Anesthesia support at approximately 9 a.m., followed by kyphoplasty in interventional radiology with Dr. Thuy Fisher and myself. This plan was discussed with Dr. Bob Flores in person. Thank you for the opportunity to assist in the care of this patient. /[id number]/MODL MTDD
[2017-01-20] MEDS: ATORVASTATIN CALCIUM 40 MG TAB PO SCH (20:32)
[2017-01-20] MEDS: NS 1,000 ML IV SCH (20:34)
[2017-01-20] MEDS: PATCH REMOVAL 1 EA PATCH TD SCH (20:43)
[2017-01-21] MEDS: traMADol 50 MG TAB PO PRN ×3 (00:46→20:27)
[2017-01-21] MEDS: ZOLPIDEM TARTRATE 5 MG TAB PO PRN ×2 (00:46→22:01)
[2017-01-21 05:14] LABS: % IMMATURE GRANULYOCYTES 0.4 % (0.0-1.1); ABSOLUTE IMMATURE GRANULOCYTES 0.02 10^3/uL (0.00-0.10); ADD DIFF? NO; ADD MORPH? NO; ADD SCAN? NO; ATYPICAL LYMPHOCYTE FLAG 20 (0-99); FRAGMENT RBC FLAG 0 (0-99); HEMATOCRIT 22.7 % (38.0-47.0); HEMOGLOBIN 7.5 g/dL (12.6-16.3); LEFT SHIFT FLG 0 (0-99); LIPEMIA HEMOLYSIS FLAG 80 (0-99); MEAN CELL HEMOGLOBIN 32.2 pg (27.9-34.1); MEAN CELL VOLUME 97.4 fL (81.5-99.8); MEAN PLATELET VOLUME 9.1 fL (8.7-11.7); PLATELET CLUMPS FLAG 20 (0-99); PLATELET COUNT 158 10^3/uL (150-400); RED BLOOD CELL COUNT 2.33 10^6/uL (4.18-5.33); RED CELL DISTRIBUTION WIDTH 12.7 % (11.5-15.2)
[2017-01-21 05:23] LABS: INR 1.19 (0.83-1.16); PROTIME(PATIENT) 15.1 SEC (12.0-15.0)
[2017-01-21 05:24] LABS: APTT 32.8 SEC (23.0-38.0)
[2017-01-21] MEDS: LEVOTHYROXINE 88 MCG TAB PO SCH (05:53)
[2017-01-21] MEDS: METHOCARBAMOL 500 MG TAB PO SCH ×4 (05:53→20:26)
[2017-01-21] MEDS ORDERED: MIDAZOLAM 2 MG/2 ML VIAL ONE (09:38)
[2017-01-21] MEDS ORDERED: PROPOFOL 200 MG/20 ML VIAL ONE (09:38)
[2017-01-21] MEDS ORDERED: PROPOFOL/EMULSION 500 MG/50 ML BOTTLE IV ONE (09:38)
[2017-01-21] MEDS: ALLOPURINOL 300 MG TAB PO SCH (09:46)
[2017-01-21] MEDS: metFORMIN HCL 500 MG TAB PO SCH ×2 (09:46→17:35)
[2017-01-21] MEDS: ENOXAPARIN 40 MG/0.4 ML SYR SC SCH (09:47)
[2017-01-21] MEDS: SENNOSIDES/DOCUSATE SODIUM TAB PO SCH ×2 (09:47→20:25)
[2017-01-21] MEDS: LISINOPRIL 20 MG TAB PO SCH ×2 (09:47→20:27)
[2017-01-21] MEDS: ASPIRIN EC 81 MG TAB PO SCH (09:47)
[2017-01-21] MEDS: CARVEDILOL 25 MG TAB PO SCH ×2 (09:47→20:26)
[2017-01-21] MEDS: MULTIVITAMINS 1 EACH TAB PO SCH (09:47)
[2017-01-21] MEDS ORDERED: ROCURONIUM 100 MG/10 ML VIAL ONE (10:26)
[2017-01-21] MEDS ORDERED: CISATRACURIUM BESYLATE 20 MG/10 ML VIAL IV ONE (10:26)
[2017-01-21] MEDS ORDERED: SUCCINYLCHOLINE CHLORIDE 200 MG/10 ML VIAL ONE (10:26)
[2017-01-21] MEDS ORDERED: RANITIDINE 50 MG/2 ML VIAL ONE (11:41)
[2017-01-21] MEDS ORDERED: ONDANSETRON 4 MG/2 ML VIAL ONE ×2 (11:41→14:22)
[2017-01-21] MEDS ORDERED: BUPIVACAINE 0.5% 30 ML SDV ONE (11:49)
--- NOTE | 2017-01-21 13:03 | POSTOPPROG ---
Post Op Note Date of Operation: 01/21/17 Surgeon: Reji Linton Clothing Patternmaker: Thuy Fisher Anesthesia: Other (Specify) Pre-op Diagnosis: Acute L1 fracture Post-op Diagnosis: Same Indication: Acute L1 fracture, pain Procedure: L1 kyphoplasty Findings: See report Inf/Abcess present in the surg proc area at time of surgery?: No Depth: Superfical (Skin SQ) EBL: Minimal Complications: No immediate
[2017-01-21] MEDS ORDERED: LIDOCAINE 2% 2 ML INJ ONE (14:22)
[2017-01-21] MEDS ORDERED: DEXAMETHASONE 10 MG/ML VIAL ONE (14:22)
[2017-01-21] MEDS ORDERED: METOCLOPRAMIDE 10 MG/2 ML VIAL ONE (14:22)
--- NOTE | 2017-01-21 15:10 | HOSPPROG ---
Hospitalist Progress Note Assessment/Plan: #L1 Compression fx not able to tolerate brace s/p kyphoplasty today -cont post procedure care #Syncope -cards consult reviewed and appreciated #acute on chronic hyponatremia -fluid restrict and monitor #normocytic anemia #vagal episode while putting on brace dispo: continue inpatient care Subjective: pain improved post procedure. denies numbness or weakness in legs. no fever or chills. Objective: Vital Signs Temp Pulse Resp BP Pulse Ox 36.8 C 71 21 H 136/65 H 96 01/21/17 14:47 01/21/17 14:47 01/21/17 14:47 01/21/17 14:47 01/21/17 14:47 Laboratory Results 01/21/17 04:35 01/19/17 04:39 01/20/17 01/21/17 01/22/17 05:59 05:59 05:59 Intake Total 800 2700 980 Output Total 500 2600 0 Balance 300 100 980 PT 15.1 SEC (12.0-15.0) H 01/21/17 04:35 INR 1.19 (0.83-1.16) H 01/21/17 04:35 - Physical Exam Constitutional: no apparent distress, appears nourished, not in pain Cardiovascular: regular rate and rhythym, no murmur, rub, or gallop Respiratory: no respiratory distress, no rales or rhonchi, clear to auscultation Neurologic: other (no saddle anesthesia. flex/ext ankle and digits) ICD10 Worksheet Patient Problems: Problems Problem Status Onset Lumbar compression fracture Acute Vasovagal syncope Acute Chronic hyponatremia Acute
[2017-01-21] MEDS: ACETAMINOPHEN 325 MG TAB PO PRN (20:24)
[2017-01-21] MEDS: ATORVASTATIN CALCIUM 40 MG TAB PO SCH (20:26)
[2017-01-21] MEDS: PATCH REMOVAL 1 EA PATCH TD SCH (20:39)
[2017-01-22] MEDS: LIDOCAINE 5% 1 EA PATCH TD SCH ×2 (00:47→20:23)
[2017-01-22] MEDS: METHOCARBAMOL 500 MG TAB PO SCH ×4 (05:17→20:25)
[2017-01-22] MEDS: LEVOTHYROXINE 88 MCG TAB PO SCH (05:17)
--- NOTE | 2017-01-22 08:45 | SOAPPROG ---
SOAP Progress Note Assessment/Plan: Assessment: 76 F w acute L1 compression fracture s/p kyphoplasty POD #1. Fracture-related pain much improved but pt does still complain of right flank/buttocks pain which is improved with a lidocaine patch and may represent contusion in the setting of a recent fall. Plan/recs: 1. Recommend PT/OT, encourage mobilization 2. Pain control per primary team 3. IR will sign off Thank you for the opportunity to assist in the care of Mrs. Kunz. 01/22/17 08:40 01/22/17 20:29 01/22/17 20:33 01/22/17 22:07 Subjective: Pt says that when she arrived to the hospital she felt two distinct 10/10 pains , one in her back (spine) and one in her right flank/buttocks. She rates the pain in her back (spine) as 2/10 since kyphoplasty. The pain in her right flank/ buttocks is now much more noticeable, and it improves somewhat with a lidocaine patch. No other complaints this am. Objective: Vital Signs Temp Pulse Resp BP Pulse Ox 36.9 C 73 16 134/66 H 99 01/21/17 23:23 01/21/17 23:23 01/21/17 23:23 01/21/17 23:23 01/21/17 23:23 Laboratory Results 01/21/17 04:35 01/19/17 04:39 01/21/17 01/22/17 01/23/17 05:59 05:59 05:59 Intake Total 2700 1480 Output Total 2600 800 Balance 100 680 PT 15.1 SEC (12.0-15.0) H 01/21/17 04:35 INR 1.19 (0.83-1.16) H 01/21/17 04:35 Gen: Sleeping but easily rousable, NAD HEENT: Normocephalic, atraumatic Heart: RRR Lungs: Equal excursions, normal effort Abd: NDNT, soft MSK: Right flank and buttocks moderately TTP, lidocaine patch in place, no point tenderness over spine Neuro: Grossly intact ICD10 Worksheet Patient Problems: Problems Problem Status Onset Chronic hyponatremia Acute Lumbar compression fracture Acute Vasovagal syncope Acute
[2017-01-22] MEDS ORDERED: LIDOCAINE 5% 1 EA PATCH TD SCH (09:00)
[2017-01-22] MEDS: CARVEDILOL 25 MG TAB PO SCH ×2 (09:26→20:24)
[2017-01-22] MEDS: metFORMIN HCL 500 MG TAB PO SCH ×2 (09:26→16:22)
[2017-01-22] MEDS: ALLOPURINOL 300 MG TAB PO SCH (09:26)
[2017-01-22] MEDS: LISINOPRIL 20 MG TAB PO SCH ×2 (09:26→20:26)
[2017-01-22] MEDS: MULTIVITAMINS 1 EACH TAB PO SCH (09:26)
[2017-01-22] MEDS: SENNOSIDES/DOCUSATE SODIUM TAB PO SCH ×2 (09:26→20:41)
[2017-01-22] MEDS: ASPIRIN EC 81 MG TAB PO SCH (09:26)
[2017-01-22] MEDS: ENOXAPARIN 40 MG/0.4 ML SYR SC SCH (09:27)
[2017-01-22] MEDS: PATCH REMOVAL 1 EA PATCH TD SCH (09:27)
[2017-01-22 10:10] LABS: % IMMATURE GRANULYOCYTES 0.4 % (0.0-1.1); ABSOLUTE IMMATURE GRANULOCYTES 0.03 10^3/uL (0.00-0.10); ADD DIFF? NO; ADD MORPH? NO; ADD SCAN? NO; ATYPICAL LYMPHOCYTE FLAG 0 (0-99); FRAGMENT RBC FLAG 0 (0-99); HEMATOCRIT 24.1 % (38.0-47.0); HEMOGLOBIN 8.2 g/dL (12.6-16.3); LEFT SHIFT FLG 0 (0-99); LIPEMIA HEMOLYSIS FLAG 90 (0-99); MEAN CELL HEMOGLOBIN 32.4 pg (27.9-34.1); MEAN CELL VOLUME 95.3 fL (81.5-99.8); MEAN PLATELET VOLUME 8.7 fL (8.7-11.7); PLATELET CLUMPS FLAG 0 (0-99); PLATELET COUNT 178 10^3/uL (150-400); RED BLOOD CELL COUNT 2.53 10^6/uL (4.18-5.33); RED CELL DISTRIBUTION WIDTH 12.7 % (11.5-15.2)
[2017-01-22 10:42] LABS: ANION GAP 6 mEq/L (8-16); CALCIUM 8.4 mg/dL (8.5-10.4); CARBON DIOXIDE 25 mEq/l (22-31); CHLORIDE 100 mEq/L (97-110); CREATININE 0.8 mg/dL (0.6-1.0); GLOMERULAR FILTRATION RATE > 60; GLUCOSE 115 mg/dL (70-100); POTASSIUM 4.7 mEq/L (3.5-5.2); SODIUM 131 mEq/L (134-144)
--- NOTE | 2017-01-22 12:28 | HOSPPROG ---
Hospitalist Progress Note Assessment/Plan: #L1 Compression fx not able to tolerate brace s/p kyphoplasty today -cont post procedure care -dc iv morphine and trail ultram. pt state she doesn't tolerate oxy or hydrocodone #rt buttock pain referred vs contusion/soft tissue injury -cont supportive care #Syncope -cards consult reviewed and appreciated #acute on chronic hyponatremia -fluid restrict and monitor #h/o anorexia -recommend outpt followup to address diet and stress reduction on dc #Cardiomyopathy, non ischemic (compensated) #normocytic anemia #vagal episode while putting on brace dispo: continue inpatient care and plan for dc home vs snf 01/23 Subjective: improving lumbar pain. worsening pain right buttock Objective: Vital Signs Temp Pulse Resp BP Pulse Ox 37.2 C 68 15 95/45 L 91 L 01/22/17 12:07 01/22/17 12:07 01/22/17 12:07 01/22/17 12:07 01/22/17 12:07 Laboratory Results 01/22/17 10:00 01/22/17 10:00 01/21/17 01/22/17 01/23/17 05:59 05:59 05:59 Intake Total 2700 1480 Output Total 2600 800 Balance 100 680 PT 15.1 SEC (12.0-15.0) H 01/21/17 04:35 INR 1.19 (0.83-1.16) H 01/21/17 04:35 - Physical Exam Constitutional: no apparent distress, appears nourished, not in pain, chronically ill appearing Ears, Nose, Mouth, Throat: moist mucous membranes Cardiovascular: regular rate and rhythym, No tachycardia, No bradycardia Respiratory: no respiratory distress, no rales or rhonchi, clear to auscultation Gastrointestinal: normoactive bowel sounds, No tenderness, No guarding, No rebound Neurologic: AAOx3, CN II-XII Intact, No facial droop ICD10 Worksheet Patient Problems: Problems Problem Status Onset Lumbar compression fracture Acute Vasovagal syncope Acute Chronic hyponatremia Acute
[2017-01-22] MEDS: ACETAMINOPHEN 325 MG TAB PO PRN (20:25)
[2017-01-22] MEDS: ATORVASTATIN CALCIUM 40 MG TAB PO SCH (20:25)
[2017-01-22] MEDS: traMADol 50 MG TAB PO PRN (20:26)
[2017-01-22] MEDS ORDERED: PATCH REMOVAL 1 EA PATCH TD SCH (21:00)
[2017-01-22] MEDS: ZOLPIDEM TARTRATE 5 MG TAB PO PRN (22:26)
[2017-01-23 05:33] VITALS: PULSE 68
[2017-01-23] MEDS: ACETAMINOPHEN 325 MG TAB PO PRN (05:35)
[2017-01-23] MEDS: LEVOTHYROXINE 88 MCG TAB PO SCH (05:35)
[2017-01-23] MEDS: METHOCARBAMOL 500 MG TAB PO SCH (05:36)
[2017-01-23] MEDS: ALLOPURINOL 300 MG TAB PO SCH (08:48)
[2017-01-23] MEDS: LISINOPRIL 20 MG TAB PO SCH (08:48)
[2017-01-23] MEDS: ASPIRIN EC 81 MG TAB PO SCH (08:48)
[2017-01-23] MEDS: MULTIVITAMINS 1 EACH TAB PO SCH (08:48)
[2017-01-23] MEDS: metFORMIN HCL 500 MG TAB PO SCH (08:48)
[2017-01-23] MEDS: ENOXAPARIN 40 MG/0.4 ML SYR SC SCH (08:48)
[2017-01-23] MEDS: CARVEDILOL 25 MG TAB PO SCH (08:48)
[2017-01-23] MEDS: SENNOSIDES/DOCUSATE SODIUM TAB PO SCH (09:05)
[2017-01-23] MEDS: PATCH REMOVAL 1 EA PATCH TD SCH (09:05)
[2017-01-23 09:35] VITALS: BP 127/63; RESP 16; TEMP 98.8; O2SAT 92
--- NOTE | 2017-01-23 10:38 | HOSPPROG ---
Hospitalist Progress Note Assessment/Plan: #L1 Compression fx not able to tolerate brace s/p kyphoplasty today -cont post procedure care -dc iv morphine and trail ultram. pt state she doesn't tolerate oxy or hydrocodone #rt buttock pain referred vs contusion/soft tissue injury -cont supportive care #Syncope -cards consult reviewed and appreciated #acute on chronic hyponatremia -fluid restrict and monitor #h/o anorexia -recommend outpt followup to address diet and stress reduction on dc #Cardiomyopathy, non ischemic (compensated) #normocytic anemia has been addressed as outpt #vagal episode while putting on brace to SNF today > 30 minutes Subjective: no events tele (interp by me) Objective: Vital Signs Temp Pulse Resp BP Pulse Ox 37.1 C 68 16 127/63 H 92 01/23/17 09:33 01/23/17 09:33 01/23/17 09:33 01/23/17 09:33 01/23/17 09:33 Laboratory Results 01/22/17 10:00 01/22/17 10:00 01/22/17 01/23/17 01/24/17 05:59 05:59 05:59 Intake Total 1480 500 Output Total 800 Balance 680 500 PT 15.1 SEC (12.0-15.0) H 01/21/17 04:35 INR 1.19 (0.83-1.16) H 01/21/17 04:35 - Physical Exam Constitutional: no apparent distress, appears nourished Eyes: PERRL, anicteric sclera Ears, Nose, Mouth, Throat: moist mucous membranes, hearing normal Cardiovascular: regular rate and rhythym, no murmur, rub, or gallop Respiratory: no respiratory distress, no rales or rhonchi Gastrointestinal: normoactive bowel sounds Genitourinary: no bladder fullness, No nance in urethra Skin: warm, normal color Musculoskeletal: full muscle strength, no muscle tenderness ICD10 Worksheet Patient Problems: Problems Problem Status Onset Lumbar compression fracture Acute Vasovagal syncope Acute Chronic hyponatremia Acute
--- NOTE | 2017-01-23 11:06 | PDIAF ---
- Diagnosis Diagnosis: L1 compression fracture Code Status: Full Code - Medication Management Discharge Medications: Medications to Continue on Transfer Allopurinol [Allopurinol 300 MG (RX)] 300 mg PO DAILY 12/07/13 [Last Taken 01/17] Aspirin EC [Aspirin EC 81 mg (*)] 81 mg PO DAILY 12/07/13 [Last Taken 01/17/17] Atorvastatin Calcium [Lipitor 40 mg (*)] 40 mg PO HS 12/07/13 [Last Taken ] Carvedilol [Coreg (*)] 25 mg PO BID 12/07/13 [Last Taken 01/17/17 09:00] FOSINOPRIL SODIUM [MONOPRIL] 20 mg PO BID 12/07/13 [Last Taken 01/17/17 09:00] Levothyroxine [Synthroid 88 mcg (*)] 88 mcg PO DAILY06 12/07/13 [Last Taken ] Potassium Cl [Klor-Con 10 meq (RX)] 10 meq PO DAILY 12/07/13 [Last Taken ] metFORMIN HCL [Glucophage 1000 mg] 1,000 mg PO BIDMEAL 12/07/13 [Last Taken 18:00] Herbals/Supplements -Info Only 1 ea PO DAILY 01/18/17 [Last Taken Unknown] Multivitamins [Multivitamin (*)] 1 each PO DAILY 01/18/17 [Last Taken Unknown] Spironolactone [Aldactone 25 MG (*)] 25 mg PO DAILY 01/18/17 [Last Taken ] Zolpidem Tartrate [Ambien 10 mg] 10 mg PO HS PRN 01/18/17 [Last Taken Unknown] Acetaminophen [Tylenol 325mg (*)] 650 mg PO Q6 PRN #0 tab 01/19/17 [Last Taken Unknown] Lidocaine 5% [Lidoderm 5% Patch (*)] 1 ea TD DAILY@2100 patch 01/23/17 [Last Taken Unknown] Patch Removal 1 ea TD DAILY patch 01/23/17 [Last Taken Unknown] Polyethylene Glycol 3350 [Miralax 17 gm (*)] 17 gm PO DAILY PRN #0 pkt 01/23/17 [Last Taken Unknown] traMADol [Ultram 50 mg (*)] 50 mg PO Q6HRS PRN #0 tab 01/23/17 [Last Taken Unknown] Discharge Medications: Refer to the Discharge Home Medication list for PRN reason. - Orders Services needed: Registered Nurse, Physical Therapy, Occupational Therapy Diet Recommendation: no restrictions on diet - Follow Up Care Current Providers and Referrals: Patient,NotPresent [Unknown] - As per Instructions
--- NOTE | 2017-01-23 21:56 | GDS ---
[f rep st] DISCHARGE SUMMARY DISCHARGE DIAGNOSES: 1. L1 compression fracture secondary to fall. 2. Syncope versus parasomnia secondary to high dose of Ambien in a 42 kg lady. 3. Familial cardiomyopathy. 4. Anemia, with negative outpatient workup. 5. History of breast cancer. 6. Recent weight loss. 7. Diabetes. HOSPITAL COURSE: Please see the admission history and physical by Dr. Bob Flores. The patient pres ented with a fall and low back pain. She had a syncope workup which revealed no events on telemetry . She had a negative troponin. She was seen by Cardiology who recommended outpatient workup. It s eems like this was more consistent with a parasomnia than an arrhythmia. She had no events on telem etry while here. She had an L-spine MRI that showed an L1 compression fracture. She underwent kyph oplasty. She was discharged to [facility] for ongoing rehabilitation. She was cautioned about the u se of high-dose Ambien. /[id number]/MODL
== END 2017-01-23 13:01 | DRG 516 ==
LOC: EDUNIT# → F3N 12:21
PROVIDERS: ADMIT Family Medicine; ATTEND Family Medicine
PROC: 03U Upper Arteries, Supplement (ICD-10-PCS; principal; 2017-01-21 12:26)
PROC: 0QS03ZZ Reposition Lumbar Vertebra, Percutaneous Approach (ICD-10-PCS; principal; 2017-01-21 12:26)
DX: S32.010A Wedge compression fracture of first lumbar vertebra, initial encounter for closed fracture (principal); W19.XXXA Unspecified fall, initial encounter; R55 Syncope and collapse; E87.1 Hypo-osmolality and hyponatremia; I42.9 Cardiomyopathy, unspecified; E11.9 Type 2 diabetes mellitus without complications; D64.9 Anemia, unspecified; I10 Essential (primary) hypertension; E03.9 Hypothyroidism, unspecified; M10.9 Gout, unspecified; Z85.3 Personal history of malignant neoplasm of breast
CPT/HCPCS: 82947-QW; 92523-GN; 96374; 97116-GP; 97161-GP; 97166-GO; G8978-GP-CJ; G8979-GP-CI; G8987-GO-CK; G8988-GO-CI; G9165-GN-CH; G9166-GN-CH; G9167-GN-CH; J0330; J1100; J1650; J2250; J2405; J2704; J2765; J2780

== ENCOUNTER → 2017-03-20 | Outpatient (CLI) | payer OTHER | LOC: BHFA 13:00 | PROVIDERS: ATTEND Internal Medicine Cardiovascular Disease | DX: R55 Syncope and collapse (principal) ==

== ENCOUNTER → 2017-03-25 | Outpatient (CLI) | payer OTHER | LOC: FIMAGING 08:05 | PROVIDERS: ATTEND Internal Medicine | DX: Z09 Encounter for follow-up examination after completed treatment for conditions other than malignant neoplasm (principal); Z98.890 Other specified postprocedural states; M43.16 Spondylolisthesis, lumbar region; M51.37 Other intervertebral disc degeneration, lumbosacral region; M41.86 Other forms of scoliosis, lumbar region ==

== ENCOUNTER 2017-09-10 11:52 | Emergency (ER) | payer OTHER ==
[2017-09-10 12:02] VITALS: BP 125/70; PULSE 65; RESP 18; TEMP 97.7; O2SAT 98
--- NOTE | 2017-09-10 12:10 | EDPHY ---
H & P Stated Complaint: right great toe injury occurred yesterday afternoon Time Seen by Provider: 09/10/17 12:00 HPI/ROS: CHIEF COMPLAINT: Right great toe pain History by patient HISTORY OF PRESENT ILLNESS: 77-year-old woman with history of diabetes presents with pain in her right great toe after dropping a large bottle of bubble bath on it yesterday when bringing her groceries. She is able to walk on it but it causes her great pain. She has been taking Tylenol 650 mg with some but not complete relief. She did injure the same toe 1 year ago when grocery cart ran over and she had significant pain at that time. She denies any other pain or injury. REVIEW OF SYSTEMS: As in HPI, and all other systems reviewed and are negative Source: Patient - Personal History Current Tetanus Diphtheria and Acellular Pertussis (TDAP): Yes Tetanus Vaccine Date: within 10 yrs - Medical/Surgical History Hx Asthma: No Hx Chronic Respiratory Disease: No Hx Diabetes: Yes Hx Cardiac Disease: Yes Hx Renal Disease: No Hx Cirrhosis: No Hx Alcoholism: No Hx HIV/AIDS: No Hx Splenectomy or Spleen Trauma: No Other PMH: BREAST CANCER. CHF. HYSTERECTOmy. Mastectomy w reconstruction. HTN. DM - Social History Smoking Status: Never smoked - Physical Exam Exam: General Appearance: Alert and no distress. Head: Normocephalic, atraumatic Eyes: Pupils equal and round no injection. Extraocular movements are intact. Musculoskeletal: Neck is supple and nontender. Extremities: Right great toe positive ecchymoses and swelling on distal great toe both dorsum and volar aspect with tenderness, positive bruising at base of toenail but no subungual hematoma and nail intact, distal sensation is intact, distal cap refills less than 2 sec, DP pulses 2+, patient wiggles the toe with pain, positive pain with passive motion. Skin: No rashes or lesions except as described above. Constitutional: Initial Vital Signs Temperature (C) 36.5 C 09/10/17 11:57 Heart Rate 65 09/10/17 11:57 Respiratory Rate 18 09/10/17 11:57 Blood Pressure 125/70 H 09/10/17 11:57 O2 Sat (%) 98 09/10/17 11:57 O2 Delivery Mode Room Air Allergies/Adverse Reactions: adhesive Allergy (Verified 09/10/17 11:57) Rash codeine Allergy (Verified 09/10/17 11:57) headache metronidazole [From Flagyl] Allergy (Verified 09/10/17 11:57) headache Home Medications: Medication Instructions Recorded Allopurinol [Allopurinol 300 MG 300 mg PO DAILY 12/07/13 (RX)] Aspirin EC [Aspirin EC 81 mg (*)] 81 mg PO DAILY 12/07/13 Atorvastatin Calcium [Lipitor 40 40 mg PO HS 12/07/13 mg (*)] Carvedilol [Coreg (*)] 25 mg PO BID 12/07/13 FOSINOPRIL SODIUM [MONOPRIL] 20 mg PO BID 12/07/13 Levothyroxine [Synthroid 88 mcg 88 mcg PO DAILY06 12/07/13 (*)] Potassium Cl [Klor-Con 10 meq (RX)] 10 meq PO DAILY 12/07/13 metFORMIN HCL [Glucophage 1000 mg] 1,000 mg PO BIDMEAL 12/07/13 Herbals/Supplements -Info Only 1 ea PO DAILY 01/18/17 Multivitamins [Multivitamin (*)] 1 each PO DAILY 01/18/17 Spironolactone [Aldactone 25 MG 25 mg PO DAILY 01/18/17 (*)] Zolpidem Tartrate [Ambien 10 mg] 10 mg PO HS PRN 01/18/17 Acetaminophen [Tylenol 325mg (*)] 650 mg PO Q6 PRN #0 tab 01/19/17 Lidocaine 5% [Lidoderm 5% Patch] 1 ea TD DAILY@2100 patch 01/23/17 Patch Removal 1 ea TD DAILY patch 01/23/17 Polyethylene Glycol 3350 [Miralax 17 gm PO DAILY PRN #0 pkt 01/23/17 17 gm (*)] traMADol [Ultram 50 mg (*)] 50 mg PO Q6HRS PRN #0 tab 01/23/17 Medical Decision Making - Diagnostics Imaging: I viewed and interpreted images myself ED Course/Re-evaluation: 77-year-old woman presents with trauma right great toe now with pain, swelling and ecchymoses. X-ray shows bone shows spurs but no obvious acute fracture. Given the patient's significant ecchymoses and tenderness will treat her clinically like her fracture and she will be given a postop shoe. She is already followed by a devil dog and I will have her follow up with her devil dog. We discussed home care including Tylenol, ibuprofen, ice rest and elevation. Departure - Departure Disposition: Home, Routine, Self-Care Clinical Impression: Contusion of great toe of right foot Qualifiers: Encounter type: initial encounter Damage to nail status: without damage Qualified Code(s): S90.111A - Contusion of right great toe without damage to nail, initial encounter Condition: Good Instructions: Foot Contusion (ED) Additional Instructions: You were seen by Dr. Alisha Davis today. Wear hard-soled shoe for comfort. You may take Tylenol 950- 1000 mg every 4-6 hours for pain and ibuprofen 400-600 mg 4 times a day as needed for pain. Icing the toe for pain relief and to reduce the swelling. Keep it elevated above the level of the heart. You may put as much weight as you can tolerate. Please follow up with her devil dog within 7-10 days. Return for any worsening or new concerns. Referrals: José Drew MD [Primary Care Provider] - As per Instructions
== END 2017-09-10 12:41 | disposition home or self-care (01) ==
LOC: CED 11:52
DX: S90.111A Contusion of right great toe without damage to nail, initial encounter (principal); E11.9 Type 2 diabetes mellitus without complications; I11.0 Hypertensive heart disease with heart failure; I50.9 Heart failure, unspecified; Z85.3 Personal history of malignant neoplasm of breast; Z79.84 Long term (current) use of oral hypoglycemic drugs; Z79.82 Long term (current) use of aspirin; W20.8XXA Other cause of strike by thrown, projected or falling object, initial encounter
CPT/HCPCS: 73660; 99283; L4386

== ENCOUNTER → 2017-11-25 | Outpatient (CLI) | payer OTHER | LOC: FIMAGING 09:59 | PROVIDERS: ATTEND Internal Medicine | DX: Z12.31 Encounter for screening mammogram for malignant neoplasm of breast (principal); Z85.3 Personal history of malignant neoplasm of breast; Z90.11 Acquired absence of right breast and nipple ==

== ENCOUNTER → 2018-02-21 | Outpatient (CLI) | payer OTHER | DX: I50.9 Heart failure, unspecified (principal) ==

== ENCOUNTER → 2018-07-04 | Outpatient (CLI) | payer OTHER | LOC: FIMAGING 15:08 | PROVIDERS: ATTEND Internal Medicine | DX: M25.552 Pain in left hip (principal) ==

== ENCOUNTER 2018-11-27 14:55 | Emergency (ER) | payer OTHER ==
[2018-11-27 15:09] VITALS: BP 130/59
--- NOTE | 2018-11-27 15:22 | EDPHY ---
H & P Stated Complaint: urinary frequency and burning 3 days and l knee pain Time Seen by Provider: 11/27/18 15:12 HPI/ROS: CHIEF COMPLAINT: Dysuria, left knee cracking HISTORY OF PRESENT ILLNESS: Patient is an 78-year-old female who reports dysuria for the last 3 days. No fever. No flank pain. She came to be evaluated for urine infection. The no recent antibiotics. No nausea vomiting or diarrhea. No vaginal symptoms. She also notes that over the last several days she has noticed some cracking and pain with weight-bearing in her left knee. She states that it does not feel unstable. She denies trauma. No significant pain distally proximally. Pain is relieved with rest. Severity: Moderate Modifying factors: Knee pain Worsened by ambulation REVIEW OF SYSTEMS: Constitutional: denies: chills, fever, recent illness, recent injury EENTM: denies: blurred vision, double vision, nose congestion Respiratory: denies: cough, shortness of breath Cardiac: denies: chest pain, irregular heart rate, lightheadedness, palpitations Gastrointestinal/Abdominal: denies: abdominal pain, diarrhea, nausea, vomiting, blood streaked stools Genitourinary: See HPI Musculoskeletal: See HPI Skin: denies: lesions, rash, jaundice, bruising Neurological: denies: headache, numbness, paresthesia, tingling, dizziness, weakness Hematologic/Lymphatic: denies: blood clots, easy bleeding, easy bruising Immunologic/allergic: denies: HIV/AIDS, transplant 10 systems reviewed and negative except as noted EXAM: GENERAL: Well-appearing, well-nourished and in no acute distress. HEAD: Atraumatic, normocephalic. EYES: Pupils equal round and reactive to light, extraocular movements intact, sclera anicteric, conjunctiva are normal. ENT: TMs normal, nares patent, oropharynx clear without exudates. Moist mucous membranes. NECK: Normal range of motion, supple without lymphadenopathy or JVD. LUNGS: Breath sounds clear to auscultation bilaterally and equal. No wheezes rales or rhonchi. HEART: Regular rate and rhythm without murmurs, rubs or gallops. ABDOMEN: Soft, nontender, normoactive bowel sounds. No guarding, no rebound. No masses appreciated. BACK: No CVA tenderness, no spinal tenderness, step-offs or deformities EXTREMITIES: Left knee with normal range of motion. No laxity with anterior- posterior drawer or lateral drawer. No bony tenderness. No swelling or deformity. Normal pulses and sensation distally. NEUROLOGICAL: Cranial nerves II through XII grossly intact. Normal speech, normal gait. 5/5 strength, normal movement in all extremities, normal sensation , normal reflexes PSYCH: Normal mood, normal affect. SKIN: Warm, dry, normal turgor, no visible rashes or lesions. Source: Patient Exam Limitations: No limitations - Personal History Current Tetanus Diphtheria and Acellular Pertussis (TDAP): Yes Tetanus Vaccine Date: 2012 - Medical/Surgical History Hx Asthma: No Hx Chronic Respiratory Disease: No Hx Diabetes: Yes Hx Cardiac Disease: Yes Hx Renal Disease: No Hx Cirrhosis: No Hx Alcoholism: No Hx HIV/AIDS: No Hx Splenectomy or Spleen Trauma: No Other PMH: BREAST CANCER. CHF. HYSTERECTOmy. Mastectomy w reconstruction. HTN. DM. OSTEOPENIA - Family History Significant Family History: No pertinent family hx - Social History Smoking Status: Never smoked Alcohol Use: None Constitutional: Initial Vital Signs Temperature (C) 36.9 C 11/27/18 15:07 Heart Rate 78 11/27/18 15:07 Respiratory Rate 18 11/27/18 15:07 Blood Pressure 130/59 H 11/27/18 15:07 O2 Sat (%) 95 11/27/18 15:07 O2 Delivery Mode Room Air Allergies/Adverse Reactions: adhesive Allergy (Verified 11/27/18 14:57) Rash codeine Allergy (Verified 11/27/18 14:57) headache metronidazole [From Flagyl] Allergy (Verified 11/27/18 14:57) headache Home Medications: Medication Instructions Recorded Allopurinol [Allopurinol 300 MG 300 mg PO DAILY 12/07/13 (RX)] Aspirin EC [Aspirin EC 81 mg (*)] 81 mg PO DAILY 12/07/13 Atorvastatin Calcium [Lipitor 40 40 mg PO HS 12/07/13 mg (*)] Carvedilol [Coreg (*)] 25 mg PO BID 12/07/13 FOSINOPRIL SODIUM [MONOPRIL] 20 mg PO BID 12/07/13 Levothyroxine [Synthroid 88 mcg 88 mcg PO DAILY06 12/07/13 (*)] Potassium Cl [Klor-Con 10 meq (RX)] 10 meq PO DAILY 12/07/13 metFORMIN HCL [Glucophage 1000 mg] 1,000 mg PO BIDMEAL 12/07/13 Herbals/Supplements -Info Only 1 ea PO DAILY 01/18/17 Multivitamins [Multivitamin (*)] 1 each PO DAILY 01/18/17 Spironolactone [Aldactone 25 MG 25 mg PO DAILY 01/18/17 (*)] Zolpidem Tartrate [Ambien 10 mg] 10 mg PO HS PRN 01/18/17 Acetaminophen [Tylenol 325mg (*)] 650 mg PO Q6 PRN #0 tab 01/19/17 Lidocaine 5% [Lidoderm 5% Patch] 1 ea TD DAILY@2100 patch 01/23/17 Patch Removal 1 ea TD DAILY patch 01/23/17 Polyethylene Glycol 3350 [Miralax 17 gm PO DAILY PRN #0 pkt 01/23/17 17 gm (*)] traMADol [Ultram 50 mg (*)] 50 mg PO Q6HRS PRN #0 tab 01/23/17 Cephalexin [Keflex] 500 mg PO TID #21 cap 11/27/18 Medical Decision Making Procedures: Patient was placed in a Gerardo wrap of her left knee. Tolerated procedure well and felt that her symptoms improved. ED Course/Re-evaluation: 3:20 p.m. the patient's knee exam is fairly unremarkable. She only has pain with weight-bearing. I suspect that she has a meniscus injury but offered to perform x-ray. She declines this. We discussed referral to Orthopedics and possibly MRI. She states that she is to claustrophobic to get MRIs. She states that she has an orthopedist already that she will make an appointment with him see if he can scope it. She is able to ambulate here in the department without difficulty. Will wrapped in Gerardo wrap. Urinalysis is pending. Will likely start on Keflex and sent for cultures. 3:40 p.m. patient's urinalysis somewhat unremarkable however considering her symptoms and age will treat regardless and send for cultures. Patient agrees with this plan. Differential Diagnosis: Partial list of the Differential diagnosis considered include but were not limited to; urinary tract infection, pyelonephritis, meniscus injury, ligamentous injury and although unlikely based on the history and physical exam , I also considered plateau fracture, spinous process fracture, infection, sepsis. I discussed these differential diagnoses and the plan with the patient as well as the usual and expected course. The patient understands that the diagnosis is provisional and that in medicine we are not always correct and that further workup is often warranted. Usual and customary warnings were given. All of the patient's questions were answered. The patient was instructed to return to the emergency department should the symptoms at all worsen or return, otherwise to followup with the physician as we discussed. - Data Points Medications Given: Discontinued Medications Cephalexin HCl (Keflex) 500 mg PO EDNOW ONE PRN Reason: Protocol Stop: 11/27/18 15:24 Last Admin: 11/27/18 15:37 Dose: 500 mg Point of Care Test Results: Urine Dip Collection Date 11/27/18 Collection Time 15:05 Specific [place] (1.002-1.030) 1.015 PH (5.0-7.5) 6.5 Leukocytes (Negative) Negative Nitrites (Negative) Negative Protein (Negative) Negative Glucose (Negative) Negative Ketones (Negative) Negative Urobilnogen (0.2-1.0 EU) 0.2 Bilirubin (Negative) Negative Blood (Negative) Negative Departure - Departure Disposition: Home, Routine, Self-Care Clinical Impression: Left knee pain Qualifiers: Chronicity: acute Qualified Code(s): M25.562 - Pain in left knee Urinary tract infection Qualifiers: Urinary tract infection type: acute cystitis Hematuria presence: without hematuria Qualified Code(s): N30.00 - Acute cystitis without hematuria Condition: Fair Instructions: Urinary Tract Infection in Women (ED), Knee Pain (ED) Referrals: José Drew MD [Primary Care Provider] - As per Instructions Daniela Sam MD [Medical Doctor] - 5-7 days, call for appt. Prescriptions: Cephalexin [Keflex] 500 mg PO TID #21 cap
[2018-11-27] MEDS ORDERED: CEPHALEXIN 500 MG CAP PO ONE (15:23)
== END 2018-11-27 15:41 | disposition home or self-care (01) ==
LOC: CED 14:55
DX: N30.00 Acute cystitis without hematuria (principal); M25.562 Pain in left knee; I10 Essential (primary) hypertension; E11.9 Type 2 diabetes mellitus without complications; Z90.710 Acquired absence of both cervix and uterus; Z85.3 Personal history of malignant neoplasm of breast
CPT/HCPCS: 99283-ER

== ENCOUNTER 2018-12-26 09:42 | Emergency (ER) | payer OTHER | END 2018-12-26 11:21 | disposition home or self-care (01) ==

== ENCOUNTER 2018-12-28 12:44 | Emergency (ER) | payer OTHER ==
--- NOTE | 2018-12-28 13:27 | EDPHY ---
H & P Stated Complaint: lac to r lower leg has increased pain/burning Time Seen by Provider: 12/28/18 12:55 HPI/ROS: CHIEF COMPLAINT: Burning sensation right lower leg at site of previous hematoma /laceration repair HISTORY OF PRESENT ILLNESS: This is an 78-year-old female who had a skin tear repaired with Steri-Strips 2 days ago. She presents tonight concerned about increasing pain at the site of the repair. She describes a burning sensation. She has not removed the dressing that was placed at the time of the repair. No new injuries. She has had no fever. REVIEW OF SYSTEMS: A ten system review of systems was performed and is negative with the exception of the items mentioned in the HPI. Past medical history: 1. Breast cancer leg sign 2. Hypertension 3. Diabetes 4. Osteopenia next 5. CHF Past surgical history: 1. Mastectomy with reconstruction 2. Hysterectomy Social history: She is here with her who is retired physician. She is in off her Lantus dose completed her 20 at the book. No tobacco use. General Appearance: Alert. Vital signs reviewed. Focused exam performed Respiratory: Lungs are clear to auscultation; no wheezes, rales, or rhonchi. Cardiovascular: Regular rate and rhythm; no murmur, rub, or gallop. Gastrointestinal: Abdomen is soft and nontender, no masses or organomegaly, bowel sounds normal. Skin: Warm and dry, no rashes on exposed skin, normal color. Scattered bruises over her upper arm spine. Back: Nontender to palpation over the thoracolumbar spine. No CVAT. Extremities: Hematoma over the anterolateral aspect of her right lower leg with skin tear just below the knee. This has been repaired with Steri-Strips. The repair is intact. There is a very small amount of oozing, no brisk bleeding. Her leg is tender to the touch at the side of the bruising. Neurological: Alert and oriented. Moving all four extremities easily and equally. Psychiatric: Normal affect. - Personal History Current Tetanus Diphtheria and Acellular Pertussis (TDAP): Yes Tetanus Vaccine Date: 2012 - Medical/Surgical History Hx Asthma: No Hx Chronic Respiratory Disease: No Hx Diabetes: Yes Hx Cardiac Disease: Yes Hx Renal Disease: No Hx Cirrhosis: No Hx Alcoholism: No Hx HIV/AIDS: No Hx Splenectomy or Spleen Trauma: No Other PMH: BREAST CANCER. CHF. HYSTERECTOmy. Mastectomy w reconstruction. HTN. DM. OSTEOPENIA - Social History Smoking Status: Never smoked Constitutional: Initial Vital Signs Temperature (C) 36.6 C 12/28/18 12:50 Heart Rate 70 12/28/18 12:50 Respiratory Rate 18 12/28/18 12:50 Blood Pressure 134/59 H 12/28/18 12:50 O2 Sat (%) 93 12/28/18 12:50 O2 Delivery Mode Room Air Allergies/Adverse Reactions: adhesive Allergy (Verified 12/28/18 12:49) Rash codeine Allergy (Verified 12/28/18 12:49) headache metronidazole [From Flagyl] Allergy (Verified 12/28/18 12:49) headache Home Medications: Medication Instructions Recorded Allopurinol [Allopurinol 300 MG 300 mg PO DAILY 12/07/13 (RX)] Aspirin EC [Aspirin EC 81 mg (*)] 81 mg PO DAILY 12/07/13 Atorvastatin Calcium [Lipitor 40 40 mg PO HS 12/07/13 mg (*)] Carvedilol [Coreg (*)] 25 mg PO BID 12/07/13 FOSINOPRIL SODIUM [MONOPRIL] 20 mg PO BID 12/07/13 Levothyroxine [Synthroid 88 mcg 88 mcg PO DAILY06 12/07/13 (*)] Potassium Cl [Klor-Con 10 meq (RX)] 10 meq PO DAILY 12/07/13 metFORMIN HCL [Glucophage 1000 mg] 1,000 mg PO BIDMEAL 12/07/13 Herbals/Supplements -Info Only 1 ea PO DAILY 01/18/17 Multivitamins [Multivitamin (*)] 1 each PO DAILY 01/18/17 Spironolactone [Aldactone 25 MG 25 mg PO DAILY 01/18/17 (*)] Zolpidem Tartrate [Ambien 10 mg] 10 mg PO HS PRN 01/18/17 Acetaminophen [Tylenol 325mg (*)] 650 mg PO Q6 PRN #0 tab 01/19/17 Lidocaine 5% [Lidoderm 5% Patch] 1 ea TD DAILY@2100 patch 01/23/17 Patch Removal 1 ea TD DAILY patch 01/23/17 Polyethylene Glycol 3350 [Miralax 17 gm PO DAILY PRN #0 pkt 01/23/17 17 gm (*)] traMADol [Ultram 50 mg (*)] 50 mg PO Q6HRS PRN #0 tab 01/23/17 Cephalexin [Keflex] 500 mg PO TID #21 cap 11/27/18 Medical Decision Making ED Course/Re-evaluation: Concerned about burning sensation at the site of the skin tear that occurred 2 days ago and was repaired with Steri-Strips. I find no evidence of infection. There is no brisk bleeding. She does have extensive bruising of her right lower leg. Wound was redressed and symptomatic treatments were discussed. We discussed wound care. I do not feel that additional emergency department evaluation is needed at this time. She asked me about her easy bruising. She does not take anticoagulants. I have suggested that she discuss this with her primary care physician. 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 Departure - Departure Disposition: Home, Routine, Self-Care Clinical Impression: Laceration Condition: Good Instructions: Steristrips (ED) Additional Instructions: Change this dressing every day. You do not need to have the wound covered once it stops oozing. Do not let the dressing be wet or the wound be wet. It is fine to take Tylenol for pain. Walking is fine. Referrals: José Drew MD [Primary Care Provider] - As per Instructions
[2018-12-28 14:12] VITALS: BP 130/64
== END 2018-12-28 14:08 | disposition home or self-care (01) ==
DX: S81.811A Laceration without foreign body, right lower leg, initial encounter (principal); Z85.3 Personal history of malignant neoplasm of breast; E11.9 Type 2 diabetes mellitus without complications; Z79.4 Long term (current) use of insulin; I10 Essential (primary) hypertension